=== PATIENT | male | born 1995 | race Caucasian/White ===

== ENCOUNTER 2018-05-18 09:16 | Emergency (ER) | payer BC ==
[~2018-05-18 09:16] MED LIST: HYDR-653 PO
[2018-05-18 09:19] VITALS: BP 126/93
--- NOTE | 2018-05-18 09:32 | ER Report ---
History and Physical Time Seen By MD: 09:32 Hx. of Stated Complaint: patient reports swelling to the left side of the throat only that has been off and on for 1 month. HPI/ROS Left sided sub mandibular swelling on/off for one month. No cold symptoms. No dysphagia or ear pain. No trauma. No trismus. No night sweats or weight loss. No IV drug use. UTD on immunizations. Remainder of the 14 system rev: Yes Allergies: Coded Allergies: cephalexin (Verified Allergy, Unknown, 01/13/17) Home Meds Active Scripts Ketorolac Tromethamine (KETOROLAC TROMETHAMINE) 10 Mg Tab, 10 MG PO Q6H PRN for PAIN for 10 Days, #20 TAB 0 Refills Prov:LENNIE TELLES MD 05/18/18 Sulfamethoxazole/Trimet 800-160 Mg Tab (BACTRIM DS TABLET) 1 Each Tablet, 1 TAB PO Q12H for 10 Days, #20 TAB Prov:LENNIE TELLES MD 05/18/18 Discontinued Scripts Hydrocodone Bit/Acetaminophen (NORCO 5-325 TABLET) 1 Each Tablet, 1 EACH PO Q6H PRN for prn, #10 TAB Prov:LYRIC KU PA-C 01/13/17 Reviewed Nurses Notes: Yes Hx Smoking: No Smoking Status: Never Smoker Exposure to Second Hand Smoke?: No Hx Substance Use Disorder: No Hx Alcohol Use: No Constitutional Vital Sign - Last 24 Hours 05/18/18 09:19 Temp 97.0 Pulse 47 Resp 16 B/P (MAP) 126/93 Pulse Ox 93 O2 Delivery Room Air Physical Exam General Appearance: The patient is alert, has no immediate need for airway protection and no current signs of toxicity. Eyes: Pupils equal and round no injection. Mouth: o/p clear. No erythema or exudate. No trismus Neck: supple, but with left sided sub mandibular swelling Respiratory: Chest is non tender, lungs are clear to auscultation. Cardiac: regular rate and rhythm Medical Decision Making Data Points Result Diagram: 05/18/18 0954 05/18/18 0954 Laboratory Hematology Test 05/18/18 09:54 Red Blood Count 5.26 M/uL (4.00-5.60) Mean Corpuscular Volume 89.3 fL (80.0-96.0) Mean Corpuscular Hemoglobin 30.4 pg (26.0-33.0) Mean Corpuscular Hemoglobin Concent 34.1 g/dL (32.0-36.0) Red Cell Distribution Width 12.6 % (11.5-14.5) Mean Platelet Volume 8.3 fL (7.2-11.1) Neutrophils (%) (Auto) 60.7 % (39.4-72.5) Lymphocytes (%) (Auto) 30.4 % (17.6-49.6) Monocytes (%) (Auto) 7.0 % (4.1-12.4) Eosinophils (%) (Auto) 1.2 % (0.4-6.7) Basophils (%) (Auto) 0.7 % (0.3-1.4) Nucleated RBC Relative Count (auto) 0.1 /100WBC Neutrophils # (Auto) 4.2 K/uL (2.0-7.4) Lymphocytes # (Auto) 2.1 K/uL (1.3-3.6) Monocytes # (Auto) 0.5 K/uL (0.3-1.0) Eosinophils # (Auto) 0.1 K/uL (0.0-0.5) Basophils # (Auto) 0.0 K/uL (0.0-0.1) Nucleated RBC Absolute Count (auto) 0.01 K/uL Sodium Level 141 mmol/L (137-145) Potassium Level 4.0 mmol/L (3.5-5.0) Chloride Level 107 mmol/L (98-107) Carbon Dioxide Level 25 mmol/L (22-30) Blood Urea Nitrogen 16 mg/dl (9-21) Creatinine 1.20 mg/dl (0.66-1.25) Glomerular Filtration Rate Calc > 60.0 Random Glucose 89 mg/dl (75-110) Calcium Level 10.0 mg/dl (8.4-10.2) Total Bilirubin 0.7 mg/dl (0.2-1.3) Aspartate Amino Transf (AST/SGOT) 21 U/L (0-35) Alanine Aminotransferase (ALT/SGPT) 28 U/L (0-56) Alkaline Phosphatase 62 U/L (0-126) Total Protein 7.4 g/dl (6.3-8.2) Albumin 4.6 g/dl (3.5-5.0) Chemistry Test 05/18/18 09:54 White Blood Count 6.9 k/uL (4.5-11.0) Red Blood Count 5.26 M/uL (4.00-5.60) Hemoglobin 16.0 g/dL (14.0-18.0) Hematocrit 46.9 % (42.0-52.0) Mean Corpuscular Volume 89.3 fL (80.0-96.0) Mean Corpuscular Hemoglobin 30.4 pg (26.0-33.0) Mean Corpuscular Hemoglobin Concent 34.1 g/dL (32.0-36.0) Red Cell Distribution Width 12.6 % (11.5-14.5) Platelet Count 234 K/uL (150-450) Mean Platelet Volume 8.3 fL (7.2-11.1) Neutrophils (%) (Auto) 60.7 % (39.4-72.5) Lymphocytes (%) (Auto) 30.4 % (17.6-49.6) Monocytes (%) (Auto) 7.0 % (4.1-12.4) Eosinophils (%) (Auto) 1.2 % (0.4-6.7) Basophils (%) (Auto) 0.7 % (0.3-1.4) Nucleated RBC Relative Count (auto) 0.1 /100WBC Neutrophils # (Auto) 4.2 K/uL (2.0-7.4) Lymphocytes # (Auto) 2.1 K/uL (1.3-3.6) Monocytes # (Auto) 0.5 K/uL (0.3-1.0) Eosinophils # (Auto) 0.1 K/uL (0.0-0.5) Basophils # (Auto) 0.0 K/uL (0.0-0.1) Nucleated RBC Absolute Count (auto) 0.01 K/uL Glomerular Filtration Rate Calc > 60.0 Calcium Level 10.0 mg/dl (8.4-10.2) Total Bilirubin 0.7 mg/dl (0.2-1.3) Aspartate Amino Transf (AST/SGOT) 21 U/L (0-35) Alanine Aminotransferase (ALT/SGPT) 28 U/L (0-56) Alkaline Phosphatase 62 U/L (0-126) Total Protein 7.4 g/dl (6.3-8.2) Albumin 4.6 g/dl (3.5-5.0) ED Course/Re-evaluation ED Course Sub mandibular gland soft tissue infection. No stones. Pt. is UTD on childhood immunizations. Will give abx and follow up with ENT. Decision to Disposition Date: May 18, 2018 Decision to Disposition Time: 11:35 Depart Departure Latest Vital Signs Vital Signs Date Time Temp Pulse Resp B/P (MAP) Pulse Ox O2 Delivery O2 Flow Rate FiO2 05/18/18 09:19 97.0 47 16 126/93 93 Room Air Impression: Primary Impression: Soft tissue infection Condition: Improved Disposition: HOME OR SELF-CARE Referrals: OPAL LOUIS JR, MD New Scripts Ketorolac Tromethamine (KETOROLAC TROMETHAMINE) 10 Mg Tab 10 MG PO Q6H PRN for PAIN for 10 Days, #20 TAB 0 Refills Prov: LENNIE TELLES MD 05/18/18 Sulfamethoxazole/Trimet 800-160 Mg Tab (BACTRIM DS TABLET) 1 Each Tablet 1 TAB PO Q12H for 10 Days, #20 TAB Prov: LENNIE TELLES MD 05/18/18 Additional Instructions: Take your antibiotics as directed. You are also given pain medication which will also help with the swelling. If you have worsening symptoms, return to the emergency department. Otherwise, follow-up with Dr. Louis in 1-2 weeks. LENNIE TELLES MD May 18, 2018 09:32
[2018-05-18] MEDS ORDERED: DEXAMETHASONE SOD PHOS 10MG/ML IVP ONE (10:10)
[2018-05-18 10:17] LABS: PLATELET COUNT, AUTOMATED 234 K/uL (150-450)
[2018-05-18] MEDS ORDERED: IOPAMIDOL 76% 100 ML INFUS BTL 100 ML ONE (10:24)
--- NOTE | 2018-05-18 11:20 | RADIOLOGY IMAGING REPORT ---
[place] [facility] [place] NAME: Yannick Barrett : 1995 MR: [id number] V: [id number] EXAM DATE: ORDERING PHYSICIAN: LENNIE TELLES TECHNOLOGIST: Location: [facility] [place] Patient: Yannick Barrett : 1995 Visit/Account:[id number] Date of Sevice: 05/18/2018 INDICATION: left sided mandibular swelling for one month. DATE: 05/18/2018 11:05 AM. TECHNIQUE: CT SOFT TISSUE NECK W/CONTRAST. Contrast-enhanced axial CT imaging was performed through t he face with sagittal and coronal reformats. 70 cc Isovue 370 administered. One of the following dose optimization techniques was utilized in the performance of this exam: Automated exposure control; ad justment of the mA and/or kV according to the patient's size; or use of an iterative reconstruction technique. Specific details can be referenced in the facility's radiology CT exam operational policy . COMPARISON: None FINDINGS: A skin marker has been placed at the level of the left submandibular gland. The gland is sl ightly larger than on the right, but it enhances normally. There is no sialolith, and there is no dis crete fluid collection or abscess. Haziness within the fat planes adjacent to the submandibular gland is mildly. Soft tissues of the neck are otherwise unremarkable. The central airways patent. Normal-appearing thyroid. The lung apices are clear. Cervical spine align ment is normal. There are no degenerative findings. IMPRESSION: The marker on the left face is at the level of the submandibular gland. The gland is larger than on t he right (slightly) with mild surrounding stranding/haziness of the fat planes. There is no sialolith or fluid collection or abscess. An underlying soft tissue infection/sialadenitis is suspected. Report Dictated By: Yasmin Prescott MD at 05/18/2018 11:05 AM Report E-Signed By: Yasmin Prescott MD at 05/18/2018 11:16 AM WSN:[id number]
[2018-05-18] MEDS ORDERED: SULF-198 PO (11:38)
[2018-05-18] MEDS ORDERED: KET10 PO (11:38)
== END 2018-05-18 11:54 | disposition home or self-care (01) ==
LOC: ER 09:46
DX: L08.9 Local infection of the skin and subcutaneous tissue, unspecified (principal)
CPT/HCPCS: 70491; 85025; 96374; 99284; J1100; Q9967; 82040; 82247; 82310; 82374; 82435; 82565; 82947; 84075; 84132; 84155; 84295; 84450; 84460; 84520

== ENCOUNTER 2018-05-21 00:13 | Emergency (ER) | payer BC ==
[~2018-05-21 00:13] MED LIST changes: +KET10 PO; +SULF-198 PO
--- NOTE | 2018-05-21 01:21 | ER Report ---
History and Physical Time Seen By MD: 01:19 Hx. of Stated Complaint: PT REPORTS FACIAL SWELLING THAT HE WAS SEEN FOR. PT RETURNED BECAUSE HE BELIEVES IT IS GETTING WORSE. PT REPORTS SWOLLEN/SORE THROAT AND IS UNABLE TO EAT/DRINK RIGHT NOW. (LAKESHA RUSSELL MD) HPI/ROS CHIEF COMPLAINT: Facial swelling HISTORY OF PRESENT ILLNESS: This is a 22-year-old male. He was seen here in the ER on May 18 for some left facial swelling in the submandibular area. CT scan was done, read as negative. He was placed on Bactrim and given Toradol for pain. Recommended follow-up with ENT. He came back tonight because the swelling seems to be worsened pain is worse. He is having trouble swallowing and breathing because of this. Difficulty with eating and drinking because of this. No fevers. (LAKESHA RUSSELL MD) Allergies: Coded Allergies: cephalexin (Verified Allergy, Unknown, 05/21/18) Home Meds Active Scripts Amoxicillin/Pot Clav 875-125 Mg Tab (AUGMENTIN 875-125 TABLET) 1 Each Tablet, 1 TAB PO Q12H for 14 Days, #28 TAB 0 Refills Prov:LAKESHA RUSSELL MD 05/21/18 Amoxicillin/Pot Clav 875-125 Mg Tab (AUGMENTIN 875-125 TABLET) 1 Each Tablet, 1 TAB PO Q12H for 14 Days, #28 TAB Prov:KENNETH LOUIS JR, MD 05/21/18 Ketorolac Tromethamine (KETOROLAC TROMETHAMINE) 10 Mg Tab, 10 MG PO Q6H PRN for PAIN for 10 Days, #20 TAB 0 Refills Prov:LENNIE TELLES MD 05/18/18 Sulfamethoxazole/Trimet 800-160 Mg Tab (BACTRIM DS TABLET) 1 Each Tablet, 1 TAB PO Q12H for 10 Days, #20 TAB Prov:LENNIE TELLES MD 05/18/18 Discontinued Scripts Hydrocodone Bit/Acetaminophen (NORCO 5-325 TABLET) 1 Each Tablet, 1 EACH PO Q6H PRN for prn, #10 TAB Prov:LYRIC KU PA-C 01/13/17 Reviewed Nurses Notes: Yes (LAKESHA RUSSELL MD) Hx Smoking: No Smoking Status: Never Smoker Exposure to Second Hand Smoke?: No Hx Substance Use Disorder: No Hx Alcohol Use: No (LAKESHA RUSSELL MD) Constitutional Vital Sign - Last 24 Hours 05/21/18 05/21/18 05/21/18 05/21/18 00:58 01:15 01:30 01:45 Temp 97.8 Pulse 56 47 Resp 16 B/P (MAP) 131/102 Pulse Ox 95 97 96 81 O2 Delivery Room Air 05/21/18 05/21/18 05/21/18 05/21/18 02:00 02:15 02:30 02:45 Pulse 57 50 52 51 Pulse Ox 97 99 94 98 05/21/18 05/21/18 02:50 03:14 Pulse 64 Pulse Ox 98 O2 Flow Rate 2.0 Intake and Output 05/20/18 05/20/18 05/21/18 15:00 23:00 07:00 Intake Total 1000 ml Balance 1000 ml (PATRICIO ELLIS MD) Physical Exam General Appearance: Alert, having acute distress because of the pain and s ignificant anxiety. Eyes: Pupils equal and round no injection. ENT: He does have asymmetry with swelling in the left submandibular area, very tender to palpation. Moist mucous membranes. Neck: Swelling does extend down into the neck. Respiratory: Lungs are clear to auscultation. Cardiac: regular rate and rhythm Musculoskeletal: No tenderness in midline Skin: No rashes or lesions. DIFFERENTIAL DIAGNOSIS: After history and physical exam differential diagnosis was considered for swelling in the submandibular area which is worsening for the patient. We will go and repeat CT scan and labs and provide some IV pain management. (LAKESHA RUSSELL MD) Medical Decision Making Data Points Result Diagram: 05/21/18 0150 05/21/18 0150 Laboratory Hematology Test 05/21/18 01:50 Red Blood Count 4.94 M/uL (4.00-5.60) Mean Corpuscular Volume 90.1 fL (80.0-96.0) Mean Corpuscular Hemoglobin 30.7 pg (26.0-33.0) Mean Corpuscular Hemoglobin Concent 34.1 g/dL (32.0-36.0) Red Cell Distribution Width 12.9 % (11.5-14.5) Mean Platelet Volume 8.5 fL (7.2-11.1) Neutrophils (%) (Auto) 67.7 % (39.4-72.5) Lymphocytes (%) (Auto) 23.4 % (17.6-49.6) Monocytes (%) (Auto) 7.7 % (4.1-12.4) Eosinophils (%) (Auto) 0.7 % (0.4-6.7) Basophils (%) (Auto) 0.5 % (0.3-1.4) Nucleated RBC Relative Count (auto) 0.1 /100WBC Neutrophils # (Auto) 8.7 K/uL (2.0-7.4) Lymphocytes # (Auto) 3.0 K/uL (1.3-3.6) Monocytes # (Auto) 1.0 K/uL (0.3-1.0) Eosinophils # (Auto) 0.1 K/uL (0.0-0.5) Basophils # (Auto) 0.1 K/uL (0.0-0.1) Nucleated RBC Absolute Count (auto) 0.01 K/uL Erythrocyte Sedimentation Rate 2 mm/HOUR (0-15) Sodium Level 140 mmol/L (137-145) Potassium Level 3.9 mmol/L (3.5-5.0) Chloride Level 106 mmol/L (98-107) Carbon Dioxide Level 23 mmol/L (22-30) Blood Urea Nitrogen 16 mg/dl (9-21) Creatinine 1.40 mg/dl (0.66-1.25) Glomerular Filtration Rate Calc > 60.0 Random Glucose 85 mg/dl (75-110) Lactate 1.2 mmol/L (0.7-2.1) Calcium Level 9.7 mg/dl (8.4-10.2) Total Bilirubin 0.6 mg/dl (0.2-1.3) Aspartate Amino Transf (AST/SGOT) 18 U/L (0-35) Alanine Aminotransferase (ALT/SGPT) 34 U/L (0-56) Alkaline Phosphatase 64 U/L (0-126) C-Reactive Protein 0.5 mg/dl (<1.0) Total Protein 6.9 g/dl (6.3-8.2) Albumin 4.5 g/dl (3.5-5.0) Chemistry Test 05/21/18 01:50 White Blood Count 12.8 k/uL (4.5-11.0) Red Blood Count 4.94 M/uL (4.00-5.60) Hemoglobin 15.2 g/dL (14.0-18.0) Hematocrit 44.5 % (42.0-52.0) Mean Corpuscular Volume 90.1 fL (80.0-96.0) Mean Corpuscular Hemoglobin 30.7 pg (26.0-33.0) Mean Corpuscular Hemoglobin Concent 34.1 g/dL (32.0-36.0) Red Cell Distribution Width 12.9 % (11.5-14.5) Platelet Count 239 K/uL (150-450) Mean Platelet Volume 8.5 fL (7.2-11.1) Neutrophils (%) (Auto) 67.7 % (39.4-72.5) Lymphocytes (%) (Auto) 23.4 % (17.6-49.6) Monocytes (%) (Auto) 7.7 % (4.1-12.4) Eosinophils (%) (Auto) 0.7 % (0.4-6.7) Basophils (%) (Auto) 0.5 % (0.3-1.4) Nucleated RBC Relative Count (auto) 0.1 /100WBC Neutrophils # (Auto) 8.7 K/uL (2.0-7.4) Lymphocytes # (Auto) 3.0 K/uL (1.3-3.6) Monocytes # (Auto) 1.0 K/uL (0.3-1.0) Eosinophils # (Auto) 0.1 K/uL (0.0-0.5) Basophils # (Auto) 0.1 K/uL (0.0-0.1) Nucleated RBC Absolute Count (auto) 0.01 K/uL Erythrocyte Sedimentation Rate 2 mm/HOUR (0-15) Glomerular Filtration Rate Calc > 60.0 Lactate 1.2 mmol/L (0.7-2.1) Calcium Level 9.7 mg/dl (8.4-10.2) Total Bilirubin 0.6 mg/dl (0.2-1.3) Aspartate Amino Transf (AST/SGOT) 18 U/L (0-35) Alanine Aminotransferase (ALT/SGPT) 34 U/L (0-56) Alkaline Phosphatase 64 U/L (0-126) C-Reactive Protein 0.5 mg/dl (<1.0) Total Protein 6.9 g/dl (6.3-8.2) Albumin 4.5 g/dl (3.5-5.0) (PATRICIO ELLIS MD) EKG/Imaging Imaging CT NECK WITH CONTRAST - 05/21/2018 01:34 HISTORY: Neck pain, left submandibular swelling. TECHNIQUE: Axial postcontrast CT images of the neck were obtained, sagittal and coronal reconstructions were provided. A total of 75 mL of Isovue-370 contrast was administered intravenously. One of the following dose optimization techniques was utilized in the performance of this exam: Automated exposure control; adjustment of the mA and/or kV according to the patient's size; or use of an iterative reconstruction technique. Specific details can be referenced in the facility's radiology CT exam operational policy. FINDINGS: Aerodigestive tract: Minimal narrowing of the pharynx at the level of the submandibular gland due to adjacent swelling. The airway remains otherwise grossly patent. Lymph nodes: Reactive enlargement of submandibular lymph nodes, left greater than right. Salivary glands: The left submandibular gland is heterogeneously asymmetrically enlarged with surrounding inflammatory change. There is a calculus in the distal aspect of the left submandibular duct measuring 3 mm in diameter on image 40 series 2, and the duct is dilated, as well as the intraglandular ducts. The right submandibular gland and the bilateral parotid glands are grossly normal. Thyroid: Normal. Thoracic inlet: Normal. Vascular structures: Normal. Orbits/paranasal sinuses/skull base: Normal. Cervical spine: Normal. Other findings: None. IMPRESSION: 1. Sialadenitis of the left submandibular gland with 3 mm calculus in the distal aspect of the duct. Prominent associated soft tissue inflammation with reactive lymph node enlargement. Consider ENT consultation. 2. There is mild narrowing of the pharynx at the level of the submandibular gland, though it is otherwise grossly patent. Dr. Meyers discussed this case with LAKESHA RUSSELL on 05/21/2018 3:46 AM. Report Dictated By: Gabriel Meyers MD at 05/21/2018 3:26 AM (LAKESHA RUSSELL MD) ED Course/Re-evaluation Clinical Indication for ER IV: Hydration, IV Access ED Course Patient was given morphine for pain which did help his pain briefly and this was redosed when the pain came back. Labs show a mild elevation of white blood cell count. The rest of labs are unremarkable with negative CRP and ESR. CT scan was done and does show the swelling on the left side of the submandibular gland and does show a large stone very anterior just under the tongue. It appears that this was missed on the prior CT scan. I explained this to the patient and recommended that we try and get in contact with Dr. Louis this morning. In the meantime we can continue to give medicines as needed. He is feeling quite a bit better. We also gave a little bit of Magic mouthwash to help ease the pain. Reassured him that the airway looks good at this point. Also gave a little bit of Decadron to help with swelling. (LAKESHA RUSSELL MD) ED Course 05/21/2018 8:15:[address] Louis ENT; it is currently operating today and [facility] able to the patient sometime this afternoon. States that patient can come in at 11:30 this morning to his office h e will squeeze the patient in in order to see and evaluate him. I discussed this with the patient they would prefer to stay in the emergency department secondary to pain concerns until his appointment at 11:30. Decision to Disposition Date: May 21, 2018 Decision to Disposition Time: 11:05 (PATRICIO ELLIS MD) Depart Departure Latest Vital Signs Vital Signs Date Time Temp Pulse Resp B/P (MAP) Pulse Ox O2 Delivery O2 Flow Rate FiO2 05/21/18 03:14 2.0 05/21/18 02:50 64 98 05/21/18 00:58 97.8 16 131/102 Room Air (PATRICIO ELLIS MD) Impression: Primary Impression: Sialoadenitis Condition: Improved Disposition: HOME OR SELF-CARE New Scripts Amoxicillin/Pot Clav 875-125 Mg Tab (AUGMENTIN 875-125 TABLET) 1 Each Tablet 1 TAB PO Q12H for 14 Days, #28 TAB 0 Refills Prov: LAKESHA RUSSELL MD 05/21/18 Additional Instructions: Go directly to the office of Dr. Kenneth Louis ear nose and throat physician in the outpatient clinic at [facility] at 11:30 this morning. LAKESHA RUSSELL MD May 21, 2018 01:21 PATRICIO ELLIS MD May 21, 2018 08:17
[2018-05-21] MEDS ORDERED: NS(*) 0.9% 1000 ML BAG 1,000 ML IV ONE (01:35)
[2018-05-21] MEDS ORDERED: MORPHINE 4 MG/ML SDV IVP ONE ×2 (01:35→02:25)
[2018-05-21] MEDS ORDERED: ONDANSETRON 4 MG/2 ML VIAL IVP ONE (01:35)
[2018-05-21] MEDS ORDERED: IOPAMIDOL 76% 100 ML INFUS BTL 100 ML ONE (01:52)
[2018-05-21 02:22] LABS: PLATELET COUNT, AUTOMATED 239 K/uL (150-450)
--- NOTE | 2018-05-21 03:50 | RADIOLOGY IMAGING REPORT ---
FACILITY: [facility] [place] PATIENT NAME: Yannick Barrett : 1995 MR: [id number] V: [id number] EXAM DATE: ORDERING PHYSICIAN: LAKESHA RUSSELL TECHNOLOGIST: Location: [facility] [place] Patient: Yannick Barrett : 1995 Visit/Account:[id number] Date of Sevice: 05/21/2018 CT NECK WITH CONTRAST - 05/21/2018 01:34 HISTORY: Neck pain, left submandibular swelling. TECHNIQUE: Axial postcontrast CT images of the neck were obtained, sagittal and coronal reconstructio ns were provided. A total of 75 mL of Isovue-370 contrast was administered intravenously. One of t he following dose optimization techniques was utilized in the performance of this exam: Automated exp osure control; adjustment of the mA and/or kV according to the patient's size; or use of an iterative reconstruction technique. Specific details can be referenced in the facility's radiology CT exam o perational policy. FINDINGS: Aerodigestive tract: Minimal narrowing of the pharynx at the level of the submandibular gland due to adjacent swelling. The airway remains otherwise grossly patent. Lymph nodes: Reactive enlargement of submandibular lymph nodes, left greater than right. Salivary glands: The left submandibular gland is heterogeneously asymmetrically enlarged with surroun ding inflammatory change. There is a calculus in the distal aspect of the left submandibular duct me asuring 3 mm in diameter on image 40 series 2, and the duct is dilated, as well as the intraglandular ducts. The right submandibular gland and the bilateral parotid glands are grossly normal. Thyroid: Normal. Thoracic inlet: Normal. Vascular structures: Normal. Orbits/paranasal sinuses/skull base: Normal. Cervical spine: Normal. Other findings: None. IMPRESSION: 1. Sialadenitis of the left submandibular gland with 3 mm calculus in the distal aspect of the duct. Prominent associated soft tissue inflammation with reactive lymph node enlargement. Consider ENT c onsultation. 2. There is mild narrowing of the pharynx at the level of the submandibular gland, though it is othe rwise grossly patent. Dr. Meyers discussed this case with LAKESHA RUSSELL on 05/21/2018 3:46 AM. Report Dictated By: Gabriel Meyers MD at 05/21/2018 3:26 AM Report E-Signed By: Gabriel Meyers MD at 05/21/2018 3:46 AM WSN:[id number]
[2018-05-21] MEDS ORDERED: MAG HYD/AL HYD/SIMETH 30ML UDC PO ONE (04:00)
[2018-05-21] MEDS ORDERED: LIDOCAINE 2% VISC SLN 15ML UDC PO ONE (04:00)
[2018-05-21] MEDS ORDERED: DEXAMETHASONE SOD PHOS 10MG/ML IVP ONE (04:00)
[2018-05-21] MEDS ORDERED: KETOROLAC 15 MG/ML VIAL IVP ONE (10:50)
[2018-05-21 11:08] VITALS: BP 114/73
[2018-05-21] MEDS ORDERED: AMOX-559 PO ×2 (12:54→19:14)
[2018-05-21] MEDS ORDERED: PENI1200 IM (13:42)
== END 2018-05-21 11:15 | disposition home or self-care (01) ==
LOC: ER 01:19
DX: K11.20 Sialoadenitis, unspecified (principal)
CPT/HCPCS: 70491; 83605; 85025; 85651; 86140; 96361; 96374; 96375; 96376; 99284; J1100; J1885; J2270; J2405; J7030; Q0163; Q9967; 82040; 82247; 82310; 82374; 82435; 82565; 82947; 84075; 84132; 84155; 84295; 84450; 84460; 84520